=== PATIENT | female | born 1940 | race Caucasian/White ===

== ENCOUNTER 2020-04-04 18:23 | Emergency (ER) | payer BC ==
[~2020-04-04] VITALS: Ht 152.4 cm; Wt 59.0 kg
--- NOTE | 2020-04-04 18:35 | NUR ---
[id number], LEFT WRIST PAIN & SWELLING S/P SLIPPED & FALL, + DEFORMITY AWAITING FOR MD EVAL
[2020-04-04] MEDS ORDERED: HYDROCODONE/APAP 10/325MG TABLET ONE (18:50)
[2020-04-04] MEDS ORDERED: IBUPROFEN 600 MG TABLET ONE (18:51)
--- NOTE | 2020-04-04 18:54 | NUR ---
SON JOSÉ MCCRAY PHONE# [phone]
--- NOTE | 2020-04-04 18:59 | NUR ---
MEDICATED ORDERED. WAITING FOR XRAY RESULT. WILL ENDORSE TO DIRECTOR GLOBAL INTELLIGENCE RN FOR VINEET
[2020-04-04] MEDS ORDERED: HYDROCODONE/APAP 10/325MG TABLET PO ONE (19:00)
[2020-04-04] MEDS ORDERED: IBUPROFEN 600 MG TABLET PO ONE (19:00)
[2020-04-04] MEDS ORDERED: LIDOCAINE 1% INJ 50 ML MDV IJ ONE ×2 (19:36→20:00)
--- NOTE | 2020-04-04 20:02 | NUR ---
family called, tobias/dillon [phone]
--- NOTE | 2020-04-04 20:21 | NUR ---
Patient discharged to home in stable condition. Written and verbal after care instructions given. Patient verbalizes understanding of instruction and RX. Pt denies pain, picked up by son. vss.
[2020-04-04 20:53] VITALS: BP 132/71
== END 2020-04-04 20:53 | disposition home or self-care (01) ==
LOC: ER 18:49
DX: S52.572A Other intraarticular fracture of lower end of left radius, initial encounter for closed fracture (principal); I10 Essential (primary) hypertension; E78.00 Pure hypercholesterolemia, unspecified; Z85.3 Personal history of malignant neoplasm of breast; Z90.12 Acquired absence of left breast and nipple; Z90.89 Acquired absence of other organs; Z88.1 Allergy status to other antibiotic agents; Z90.710 Acquired absence of both cervix and uterus; Z60.2 Problems related to living alone; W01.0XXA Fall on same level from slipping, tripping and stumbling without subsequent striking against object, initial encounter; Y93.89 Activity, other specified; Y92.89 Other specified places as the place of occurrence of the external cause; Y99.8 Other external cause status
CPT/HCPCS: 29125; 73100; 99283; J3490